=== PATIENT | male | born 1935 | race Two or more races ===

== ENCOUNTER 2016-12-15 14:11 | Inpatient (IN) | payer MEDICARE, OTHER ==
[~2016-12-15] VITALS: Ht 177.8 cm; Wt 62.8 kg
[2016-12-15] MEDS ORDERED: LEVO25TA5 PO (14:33)
[2016-12-15] MEDS ORDERED: FLOM5CAP PO (14:33)
[2016-12-15] MEDS ORDERED: VITA50LO2 PO (14:33)
[2016-12-15] MEDS ORDERED: ASPI81TA85 PO (14:33)
[2016-12-15] MEDS ORDERED: TUMS500C PO (14:33)
[2016-12-15] MEDS ORDERED: TYLE500T78 PO (14:33)
[2016-12-15] MEDS ORDERED: DONETAB5 PO (14:33)
[2016-12-15] MEDS ORDERED: LEXA1TAB PO (14:33)
[2016-12-15] MEDS ORDERED: [UNRECOGNIZED DRUG - CODE] PO (14:33)
[2016-12-15] MEDS ORDERED: MAGN1CAP PO (14:33)
[2016-12-15] MEDS ORDERED: ACETAMINOPHEN TAB 650MG DOSE (2X325MG) PO ONE (15:00)
[2016-12-15 15:09] LABS: BASO % 0.3 % (0.0-1.0); EOS % 0.2 % (0.0-3.0); LARGE UNSTAINED CELL # 0.1 K/mm3 (0.0-0.4); LARGE UNSTAINED CELL % 0.3 % (0.0-4.0); LYMPH # 0.5 K/mm3 (1.5-4.5); LYMPH % 3.4 % (24.0-44.0); MEAN CORPUSCULAR HEMOGLOBIN 31.4 pg (27.0-33.0); MEAN CORPUSCULAR HGB CONC 33.4 g/dl (32.0-36.5); MONO # 0.7 K/mm3 (0.0-0.8); MONO % 4.8 % (0.0-5.0); NEUTROPHILS # 12.5 K/mm3 (1.8-7.7); NEUTROPHILS % 91.1 % (36.0-66.0); PLATELET COUNT, AUTOMATED 164 k/mm3 (150-450); WHITE BLOOD COUNT 13.7 K/mm3 (4.0-10.0)
[2016-12-15 15:27] LABS: BILIRUBIN,TOTAL 1.5 MG/DL (0.2-1.0); CALCIUM LEVEL 9.3 MG/DL (8.8-10.2); CREATININE FOR GFR 1.48 MG/DL (0.70-1.30); GLOMERULAR FILTRATION RATE 48.4 (>35); POTASSIUM SERUM 4.3 MEQ/L (3.5-5.1)
[2016-12-15 15:28] LABS: ALBUMIN 4.4 GM/DL (3.2-5.2); ALBUMIN/GLOBULIN RATIO 1.19 (1.00-1.93); BILIRUBIN,DIRECT 0.5 MG/DL (0.0-0.2); FREE T4 1.15 NG/DL (0.76-1.46); TOTAL PROTEIN 8.1 GM/DL (6.4-8.2)
[2016-12-15] MEDS ORDERED: IBUPROFEN 600 MG TAB As Ordered ONE (17:26)
[2016-12-15] MEDS ORDERED: B-1210009 PO (18:37)
[2016-12-15] MEDS ORDERED: DONE5TAB17 PO (18:37)
[2016-12-15] MEDS ORDERED: LEVO50TA45 PO (18:37)
[2016-12-15] MEDS ORDERED: SODIUM CHLORIDE 0.9% 1000 ML IV ONE (19:45)
[2016-12-15] MEDS ORDERED: ONDANSETRON 4MG/2ML VIAL (J2405) IV PRN (19:45)
--- NOTE | 2016-12-15 22:07 | HPEPDOC ---
General Date of Admission 12/15/[address] Sandoval [place] Attending Physician: SWATHI TAVAREZ MD Chief Complaint The patient is a 81-year-old male admitted with a reason for visit of AMS. Source: Patient, Family History of Present Illness 81 M poor historian, visiting, h/o hypothyroid, BPH, incontinence, depression dementia, with h/o of CKD chronic back pain, PPM, baseline ambulatory. presented with 1 days of chills and rigor not himself, mild confusion, sent from urgent care with fever of 102. found to have UTI . patient denied cp, palpation, sob, coughing, abd pain, n/v/d/c. no sick contact. ER requested admission. Home Medications Scheduled (Ubqh) 50 Mg Cap, 50 MG PO DAILY, (Reported) (Magnesium) 500 Mg Cap, 500 MG PO DAILY, (Reported) Acetaminophen (Tylenol Extra Strength) 500 Mg Tab, 500 MG PO BID, (Reported) Aspirin (Aspir-81) 81 Mg Tab, 81 MG PO DAILY, (Reported) Cyanocobalamin (B-12) 1,000 Mcg Tab, 1,000 MCG PO DAILY, (Reported) Donepezil Hydrochloride (Donepezil HCl) 5 Mg Tab, 10 MG PO QHS, (Reported) Escitalopram Oxalate (Lexapro) 10 Mg Tab, 10 MG PO DAILY, (Reported) Levothyroxine Sodium (Levoxyl) 50 Mcg Tab, 50 MCG PO DAILY, (Reported) Tamsulosin Hydrochloride (Flomax) 0.4 Mg Cap, 0.4 MG PO QHS, (Reported) Scheduled PRN Calcium Carbonate (Tums) 500 Mg Chw, 500 MG PO PRN PRN for HEARTBURN, (Reported) Allergies Coded Allergies: No Known Allergies (Unverified , 12/15/16) Past Medical History Medical History Depression, hypothyroidism, chronic back pain, demetia, BPH Surgical History ppm, appendix, back surgery, and hernia repair Social History * Smoker: Denies Alcohol: occationally Drugs: denies visiting, from [place] Review of Symptoms Constitutional: Reports: Chills, Fever, Malaise Eyes: Denies: Pain, Vision change ENT: Denies: Head Aches Skin: Denies: Rash, Lesions Pulmonary: Denies: Dyspnea, Cough Cardiovascular: Denies: Chest Pain, Palpitations, Orthopnea Gastrointestinal: Denies: Nausea, Vomiting, Abdominal Pain, Diarrhea, Constipation Genitourinary: Reports: Incontinence Musculoskeletal: Reports: Back Pain, Denies: Neck Pain, Shoulder Pain Neurological: Reports: Weakness, Confusion Psych: Reports: Mood Normal Physical Examination General Exam: Positive: Alert, No Acute Distress Eye Exam: Positive: PERRLA, Conjunctiva & lids normal ENT Exam: Positive: Atraumatic, Mucous membr. moist/pink Neck Exam: Positive: Supple Chest Exam: Positive: Clear to auscultation, Normal air movement, Negative: Rales, Rhonchi, Wheezing Heart Exam: Positive: Rate Normal, Normal S1, Normal S2, Negative: Tachycardic Abdomen Exam: Positive: Normal bowel sounds, Soft, Negative: Tenderness Extremity Exam: Negative: Clubbing, Cyanosis, Edema Vital Signs Vital Signs Date Time Temp Pulse Resp B/P (MAP) Pulse Ox O2 Delivery O2 Flow Rate FiO2 12/15/16 18:29 101.0 12/15/16 15:28 78 16 12/15/16 14:23 99 Room Air Laboratory Data Labs 24H Laboratory Tests 2 12/15/16 14:27: White Blood Count 13.7H, Red Blood Count 4.27L, Hemoglobin 13.4L, Hematocrit 40.1L, Mean Corpuscular Volume 94.0, Mean Corpuscular Hemoglobin 31.4, Mean Corpuscular Hemoglobin Concent 33.4, Red Cell Distribution Width 14.0, Platelet Count 164, Neutrophils (%) (Auto) 91.1H, Lymphocytes (%) (Auto) 3.4L, Monocytes (%) (Auto) 4.8, Eosinophils (%) (Auto) 0.2, Basophils (%) (Auto) 0.3, Neutrophils # (Auto) 12.5H, Lymphocytes # (Auto) 0.5L, Monocytes # (Auto) 0.7, Eosinophils # (Auto) 0.0, Basophils # (Auto) 0.0, Large Unclassified Cells % 0.3 , Large Unclassified Cells # 0.1, Anion Gap 11, Glomerular Filtration Rate 48.4 , Calcium Level 9.3, Aspartate Amino Transf (AST/SGOT) 17, Alanine Aminotransferase (ALT/SGPT) 18, Alkaline Phosphatase 85, Total Bilirubin 1.5H, Direct Bilirubin 0.5H, Total Protein 8.1, Albumin 4.4, Albumin/Globulin Ratio 1.19, Thyroid Stimulating Hormone (TSH) 0.587, Free Thyroxine 1.15 12/15/16 15:21: Urine Appearance CLEAR, Urine Color YELLOW, Urine pH 8.0, Urine Specific [place] 1.021, Urine Protein NEGATIVE, Urine Glucose (UA) NEGATIVE, Urine Ketones NEGATIVE, Urine Urobilinogen 0.2, Urine Bilirubin NEGATIVE, Urine Leukocyte Esterase 1+H, Urine Blood 2+H, Urine Nitrite NEGATIVE, Urine WBC (Auto ) 18H, Urine RBC (Auto) 94H, Urine Hyaline Casts (Auto) 0, Urine Bacteria (Auto ) 2+H, Urine Squamous Epithelial Cells 0, Urine Sperm (Auto) 12/15/16 19:50: C-Reactive Protein, Quantitative 1.82H, Lipase 96 CBC/BMP Laboratory Tests 12/15/16 14:27 Red Blood Count 4.27 L, Mean Corpuscular Volume 94.0, Mean Corpuscular Hemoglobin 31.4, Mean Corpuscular Hemoglobin Concent 33.4, Red Cell Distribution Width 14.0, Neutrophils (%) (Auto) 91.1 H, Lymphocytes (%) (Auto) 3.4 L, Monocytes (%) (Auto) 4.8, Eosinophils (%) (Auto) 0.2, Basophils (%) (Auto ) 0.3, Neutrophils # (Auto) 12.5 H, Lymphocytes # (Auto) 0.5 L, Monocytes # ( Auto) 0.7, Eosinophils # (Auto) 0.0, Basophils # (Auto) 0.0 Microbiology Microbiology 12/15/16 Blood Culture, Received Pending 12/15/16 Blood Culture, Received Pending 12/15/16 Urine Culture, Received Pending Assessment/Plan 81 M poor historian, visiting, h/o hypothyroid, BPH, incontinence, depression dementia, with h/o of CKD chronic back pain, PPM, baseline ambulatory.a/w fever UTI Problems (1) Pyelonephritis Status: Acute Problem Text: uc, bc, Zosyn Ua appreciated, IVF (2) Fever Status: Acute Problem Text: Tylenol, IVF, antibiotics, possible 2/2 to pyelonephritis, vs GI source (3) Encephalopathy Status: Acute Problem Text: mild, 2/[address] head wnl neuro check (4) Elevated bilirubin Status: Acute Problem Text: CT abd apreciated lipase neg possible 2/2 to fever and infection IVf monitor US RUQ (5) Depression Status: Chronic Problem Text: c/w med (6) Hypothyroid Status: Chronic Problem Text: thyroid panel c/w med (7) BPH (benign prostatic hyperplasia) Status: Chronic Problem Text: c/w med (8) Dementia Status: Chronic Problem Text: c/w med, supportive care Plan / VTE VTE Prophylaxis Ordered?: Yes (hep sq) Plan Plan cultures, clinical improvement, and PT OLVIN BAIRD MD Dec 15, 2016 22:07
[2016-12-15] MEDS: PIPERACILLIN/TAZOBACTAM SOD 2.25 GM in D5W MINI-BAG PLUS 50 ML IV SCH (23:50)
[2016-12-16 00:55] VITALS: BP 111/60
[2016-12-16] MEDS: DONEPEZIL 5 MG TAB PO SCH ×2 (02:40→20:04)
[2016-12-16] MEDS: TAMSULOSIN 0.4 MG CAP PO SCH ×2 (02:40→20:04)
[2016-12-16] MEDS: HEPARIN SOD (PORCINE) 5000 UNITS/ML VIAL SC SCH ×3 (02:40→20:04)
[2016-12-16] MEDS: SENOKOT S TAB PO SCH ×3 (02:40→20:04)
[2016-12-16] MEDS: NS 1,000 ML IV SCH ×3 (02:41→22:25)
[2016-12-16] MEDS: PIPERACILLIN/TAZOBACTAM SOD 2.25 GM in D5W MINI-BAG PLUS 50 ML IV SCH ×4 (04:19→22:25)
[2016-12-16 04:35] VITALS: BP 119/70
[2016-12-16] MEDS: LEVOTHYROXINE 50MCG TABLET (0.05MG) PO SCH (06:15)
[2016-12-16 06:43] LABS: MEAN CORPUSCULAR HEMOGLOBIN 32.4 pg (27.0-33.0); MEAN CORPUSCULAR VOLUME 95.3 fl (80.0-96.0); RED CELL DISTRIBUTION WIDTH 13.9 % (11.5-14.5); WHITE BLOOD COUNT 14.9 K/mm3 (4.0-10.0)
[2016-12-16 06:49] LABS: INR 1.38
[2016-12-16 06:58] LABS: ALBUMIN 3.6 GM/DL (3.2-5.2); CALCIUM LEVEL 8.3 MG/DL (8.8-10.2); CREATININE FOR GFR 1.42 MG/DL (0.70-1.30); GLOMERULAR FILTRATION RATE 50.8 (>35); POTASSIUM SERUM 4.2 MEQ/L (3.5-5.1); TOTAL PROTEIN 7.2 GM/DL (6.4-8.2)
[2016-12-16 07:10] LABS: BILIRUBIN,TOTAL 2.6 MG/DL (0.2-1.0)
[2016-12-16 08:00] VITALS: BP 104/63
--- NOTE | 2016-12-16 09:16 | REP ---
Chest x-ray: Two views. History: Low grade fever. Findings: The lungs are somewhat hyperinflated, but clear. A bipolar pacemaker is seen in the right heart via the left side. There is diffuse osteopenia. No infiltrate is seen. Pleural angles are sharp. Pulmonary vasculature is not increased. Heart is mildly enlarged unchanged. Impression: Mild cardiomegaly with pacemaker. Lungs clear. Signed by Emanuel Barraza MD 12/16/2016 10:07 A
[2016-12-16] MEDS: ESCITALOPRAM OXALATE 10 MG TAB (LEXAPRO) PO SCH (09:45)
[2016-12-16] MEDS: CYANOCOBALAMIN 500 MCG TAB PO SCH (09:46)
[2016-12-16] MEDS: ASPIRIN 81 MG ENTERIC TAB PO SCH (09:46)
[2016-12-16] MEDS: ACETAMINOPHEN TAB 650MG DOSE (2X325MG) PO PRN ×2 (09:49→20:05)
[2016-12-16 12:00] VITALS: BP 107/73
--- NOTE | 2016-12-16 14:26 | REP ---
Clinical: Altered mental status. Comparison: 10/23/2014 . Findings: Age-related atrophy and microvascular ischemic changes are appreciated. The ventricles and sulci are symmetric. Junior-white differentiation is maintained. There is no evidence for acute intracranial hemorrhage, mass/mass effect, pathology or infarction. No extra-axial fluid collection. Calvarium is intact. Paranasal sinuses and mastoid air cells are clear. Impression: Age related atrophy and microvascular ischemic changes. No acute intracranial hemorrhage, infarction, or mass/mass effect. Signed by King Stevenson MD 12/15/2016 08:27 P
--- NOTE | 2016-12-16 14:33 | REP ---
Clinical: Acute right upper quadrant abdominal pain. Technique: Junior scale ultrasound using curved array transducer. Findings: The liver and pancreas are normal in contour, size, and echogenicity without focal hepatic or pancreatic lesions identified. The gallbladder is normal without gallstones, wall thickening or pericholecystic fluid. No biliary ductal dilatation is appreciated, and the common bile duct measures 2.1 mm diameter. The right kidney is normal in reniform shape without hydronephrosis and measures 10.2 x 4.0 x 4.7 cm. No ascites. Visualized portions of the abdominal aorta normal. Impression: Normal right upper quadrant and gallbladder abdominal ultrasound. Signed by King Stevenson MD 12/16/2016 07:06 A
--- NOTE | 2016-12-16 15:07 | REP ---
CT ABDOMEN AND PELVIS WITHOUT IV CONTRAST: CT abdomen and pelvis performed without oral or IV contrast with sagittal and coronal reconstruction images performed. There are fibrotic changes in each lung base. There is mild cardiomegaly with a small amount of right pericardial fluid. The liver, spleen, adrenals, pancreas, and kidneys are grossly unremarkable. No renal or ureteral calculus is seen and there so no hydroureteronephrosis. There are moderate atherosclerotic calcifications of the abdominal aorta which is quite tortuous. There is no abdominal aortic aneurysm. There is no adenopathy. There is no free fair or free fluid. There is no bowel wall thickening. There is no evidence of a pelvic mass. Urinary bladder is not well distended and not well evaluated. Soft tissue density in the right inguinal canal probably represents the patient's right testicle. Lumbar spine is curved towards the right and there are degenerative changes of the spine. IMPRESSION: No acute abnormalities. Mild cardiomegaly. Right testicle appears to be located in the inguinal canal. No free air or free fluid. No evidence of renal or ureteral calculus and no hydroureteronephrosis. Signed by Murray Junior MD 12/16/2016 04:02 P
--- NOTE | 2016-12-16 15:22 | IPN ---
DATE: 12/16/2016 Mr. Wilkinson is a poor historian. He has no complaints of pain, chest pain. No shortness of breath. He seems to be tolerating a diet. Temperature 99.2, pulse 82, respiratory rate 16, blood pressure 119/70, 96% on room air. Body Mass Index (BMI) 23.4. He is answering simple questions, but is a poor historian. Mucous membranes are moist. Neck is supple. Breathing is symmetrical. Abdomen is soft, doughy, nontender. White cell count 14.9, hemoglobin 12.4, platelets 151, INR is 1.3. White cell count in his urine was 18 with 94 red cells. Sodium 137, potassium 4.2, chloride 105, carbon dioxide 24, BUN 23, creatinine 1.42, total bilirubin 2.6, baseline creatinine would appear to be perhaps around 1.35 based on laboratories from 2015. ASSESSMENT: This is an 81-year-old with suspected pyelonephritis or urinary tract infection (UTI). PLAN: 1. Infectious disease. The patient is continued on appropriate antibiotics. Awaiting culture results. 2. The patient has encephalopathy, which is likely acute on chronic, made worse with infection and fever. 3. The patient has elevated bilirubin. We will repeat in the morning. 4. The patient has hypothyroidism. 5. The patient has benign prostatic hypertrophy. 6. The patient has dementia. 7. The patient could possibly benefit from social work consultation.
[2016-12-16 18:05] VITALS: BP 122/73
[2016-12-16 22:00] VITALS: BP_SYST 107; BP_SYST 123; BP_DIAS 50; BP_DIAS 72
[2016-12-17] MEDS: PIPERACILLIN/TAZOBACTAM SOD 2.25 GM in D5W MINI-BAG PLUS 50 ML IV SCH ×2 (04:26→09:37)
[2016-12-17 06:00] VITALS: BP 139/88
[2016-12-17] MEDS: ACETAMINOPHEN TAB 650MG DOSE (2X325MG) PO PRN ×2 (06:13→21:14)
[2016-12-17] MEDS: LEVOTHYROXINE 50MCG TABLET (0.05MG) PO SCH (06:13)
[2016-12-17 06:29] LABS: MEAN CORPUSCULAR HEMOGLOBIN 31.2 pg (27.0-33.0); MEAN CORPUSCULAR HGB CONC 33.1 g/dl (32.0-36.5); MEAN CORPUSCULAR VOLUME 94.2 fl (80.0-96.0); RED CELL DISTRIBUTION WIDTH 14.2 % (11.5-14.5); WHITE BLOOD COUNT 12.3 K/mm3 (4.0-10.0)
[2016-12-17 07:29] LABS: ALBUMIN 3.3 GM/DL (3.2-5.2); ALBUMIN/GLOBULIN RATIO 0.92 (1.00-1.93); BILIRUBIN,TOTAL 1.2 MG/DL (0.2-1.0); CREATININE FOR GFR 1.29 MG/DL (0.70-1.30); GLOMERULAR FILTRATION RATE 56.8 (>35); MAGNESIUM LEVEL 1.9 MG/DL (1.8-2.4); TOTAL PROTEIN 6.9 GM/DL (6.4-8.2)
[2016-12-17] MEDS: CYANOCOBALAMIN 500 MCG TAB PO SCH (08:22)
[2016-12-17] MEDS: ASPIRIN 81 MG ENTERIC TAB PO SCH (08:23)
[2016-12-17] MEDS: ESCITALOPRAM OXALATE 10 MG TAB (LEXAPRO) PO SCH (08:23)
[2016-12-17] MEDS: SENOKOT S TAB PO SCH ×2 (08:23→21:14)
[2016-12-17] MEDS: HEPARIN SOD (PORCINE) 5000 UNITS/ML VIAL SC SCH ×2 (08:23→21:15)
[2016-12-17] MEDS: cefTRIAXone SOD 1 GM in D5W MINI-BAG PLUS 50 ML IV SCH (13:46)
[2016-12-17 14:00] VITALS: BP 122/76
--- NOTE | 2016-12-17 15:13 | IPN ---
DATE: 12/17/2016 Mr. Wilkinson is doing better today. He seems to be more interactive. He has no complaints of pain. He was up and walking with assistance. Temperature is 98.7, pulse 79, respiratory rate 18, blood pressure 139/70. Input and output notable for positive 100, but that does not account for a number of incontinent voids. He is answering simple questions. Has no complaints of pain. Mucous membranes are moist. Neck is supple. Breathing is symmetrical. Heart is distant sounding as well. I:E ratio is 1:3. Radial pulses 2+. Abdomen is soft, doughy, nontender. White cell count 12.3, hemoglobin 11.4, platelets 136. BUN 23, creatinine 1.29, total bilirubin 1.2 and improving. ASSESSMENT: This is an 81-year-old with suspected pyelonephritis and likely urinary tract infection (UTI) resulting in metabolic encephalopathy, which is improving. PLAN: 1. Infectious disease. The patient is continued on antibiotics. Urine culture has grown Escherichia (E) coli. Zosyn has been switched to ceftriaxone. 2. The patient has metabolic encephalopathy, which is acute on chronic, made worse with infection. He is improving. 3. Physical debility. The patient was seen by physical therapy (PT) and will likely need one to two sessions of inpatient physical therapy (PT) to return to his previous level of function. 4. The patient has hypothyroidism. 5. The patient has benign prostatic hypertrophy. 6. The patient has dementia. I did discuss this case in person with the patient's yesterday.
[2016-12-17] MEDS ORDERED: HALOPERIDOL 1 MG TAB PO PRN (18:00)
[2016-12-17] MEDS: DONEPEZIL 5 MG TAB PO SCH (21:14)
[2016-12-17] MEDS: risperiDONE 0.25 MG TAB PO SCH (21:14)
[2016-12-17] MEDS: TAMSULOSIN 0.4 MG CAP PO SCH (21:14)
[2016-12-17 21:30] VITALS: BP 167/97
[2016-12-18] MEDS: LEVOTHYROXINE 50MCG TABLET (0.05MG) PO SCH (06:08)
[2016-12-18] MEDS: ACETAMINOPHEN TAB 650MG DOSE (2X325MG) PO PRN ×2 (06:13→20:08)
[2016-12-18 06:15] VITALS: BP 138/87
[2016-12-18 06:35] LABS: MEAN CORPUSCULAR HEMOGLOBIN 31.6 pg (27.0-33.0); MEAN CORPUSCULAR HGB CONC 33.2 g/dl (32.0-36.5); MEAN CORPUSCULAR VOLUME 95.3 fl (80.0-96.0); RED CELL DISTRIBUTION WIDTH 14.2 % (11.5-14.5); WHITE BLOOD COUNT 7.5 K/mm3 (4.0-10.0)
[2016-12-18 06:53] LABS: ALBUMIN 3.2 GM/DL (3.2-5.2); ALBUMIN/GLOBULIN RATIO 0.91 (1.00-1.93); BILIRUBIN,TOTAL 1.1 MG/DL (0.2-1.0); CALCIUM LEVEL 8.5 MG/DL (8.8-10.2); CREATININE FOR GFR 1.28 MG/DL (0.70-1.30); GLOMERULAR FILTRATION RATE 57.3 (>35); MAGNESIUM LEVEL 2.1 MG/DL (1.8-2.4); POTASSIUM SERUM 3.9 MEQ/L (3.5-5.1); TOTAL PROTEIN 6.7 GM/DL (6.4-8.2)
[2016-12-18] MEDS: HEPARIN SOD (PORCINE) 5000 UNITS/ML VIAL SC SCH ×2 (09:01→20:09)
[2016-12-18] MEDS: SENOKOT S TAB PO SCH ×2 (09:01→20:09)
[2016-12-18] MEDS: ESCITALOPRAM OXALATE 10 MG TAB (LEXAPRO) PO SCH (09:01)
[2016-12-18] MEDS: ASPIRIN 81 MG ENTERIC TAB PO SCH (09:01)
[2016-12-18] MEDS: CYANOCOBALAMIN 500 MCG TAB PO SCH (09:01)
[2016-12-18] MEDS: risperiDONE 0.25 MG TAB PO SCH ×2 (09:01→20:09)
--- NOTE | 2016-12-18 11:13 | IPN ---
DATE: 12/18/2016 Mr. Wilkinson had some element of confusion yesterday afternoon which has resolved with the use of Haldol and Risperdal. He slept well last night. He did have a sitter placed yesterday. This morning, he has no complaints of pain. He is somnolent, but easily aroused. Temperature 99.6, pulse 83, respiratory rate 18, blood pressure 138/87, 96% on room air. He is able to tell me that he is at [facility] in [place]. He does not know who the president is. Mucous membranes moist. Neck supple. Breathing is symmetrica, rested. Heart is borderline tachycardiac on exam with a rate between 90 and 100. Radial pulses are 2+. Capillary refill is less than 2 seconds. Abdomen is doughy, tympanitic, nontender. White cell count 7.5, hemoglobin 11, and platelets of 131. BUN 21, creatinine 1.28, total bilirubin 1.1. ASSESSMENT: This is an 81-year-old with suspected pyelonephritis and likely urinary tract infection resulting in metabolic encephalopathy. PLAN: 1. Infectious disease. Patient is continued on antibiotics. He is currently on ceftriaxone for E. Coli urinary tract infection (UTI). 2. The patient has metabolic encephalopathy which is acute on chronic and made worse with his infection. He is on a short course of Risperdal and Haldol as needed. He does have a sitter at bedside. 3. The patient has physical debility and is not back to his previous level of function. 4. The patient has hypothyroidism. 5. The patient has benign prostatic hypertrophy (BPH). 6. The patient has dementia.
--- NOTE | 2016-12-18 13:33 | ECGEPIP ---
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 Consistent ventricular paced rhythm. Paced complexes with leftward axis and LBBB in keeping with RV apical stimulation No change from 10/22/14 Electronically Signed On 12-18-2016 13:32:50 EDT by Jaswinder Dickey
[2016-12-18] MEDS: cefTRIAXone SOD 1 GM in D5W MINI-BAG PLUS 50 ML IV SCH (13:34)
[2016-12-18 14:00] VITALS: BP 122/70
[2016-12-18] MEDS: TAMSULOSIN 0.4 MG CAP PO SCH (20:08)
[2016-12-18] MEDS: DONEPEZIL 5 MG TAB PO SCH (20:08)
[2016-12-18 22:00] VITALS: BP 121/77
[2016-12-19] MEDS: LEVOTHYROXINE 50MCG TABLET (0.05MG) PO SCH (05:34)
[2016-12-19] MEDS: ACETAMINOPHEN TAB 650MG DOSE (2X325MG) PO PRN (05:35)
[2016-12-19 06:00] VITALS: BP 150/95
[2016-12-19 06:26] LABS: MEAN CORPUSCULAR HEMOGLOBIN 31.9 pg (27.0-33.0); MEAN CORPUSCULAR VOLUME 93.9 fl (80.0-96.0); RED CELL DISTRIBUTION WIDTH 14.3 % (11.5-14.5); WHITE BLOOD COUNT 6.4 K/mm3 (4.0-10.0)
[2016-12-19 06:55] LABS: ALBUMIN 3.2 GM/DL (3.2-5.2); ALBUMIN/GLOBULIN RATIO 0.97 (1.00-1.93); ALKALINE PHOSPHATASE 68 U/L (45-117); ALT/SGPT 24 U/L (12-78); ANION GAP 11 MEQ/L (8-16); AST/SGOT 27 U/L (15-37); BILIRUBIN,TOTAL 0.8 MG/DL (0.2-1.0); BLOOD UREA NITROGEN 20 MG/DL (7-18); CALCIUM LEVEL 8.2 MG/DL (8.8-10.2); CARBON DIOXIDE LEVEL 23 MEQ/L (21-32); CHLORIDE LEVEL 107 MEQ/L (98-107); CREATININE FOR GFR 1.18 MG/DL (0.70-1.30); GLOMERULAR FILTRATION RATE > 60.0 (>35); GLUCOSE, FASTING 97 MG/DL (83-110); MAGNESIUM LEVEL 1.9 MG/DL (1.8-2.4); POTASSIUM SERUM 3.8 MEQ/L (3.5-5.1); SODIUM LEVEL 141 MEQ/L (136-145); TOTAL PROTEIN 6.5 GM/DL (6.4-8.2)
[2016-12-19] MEDS: risperiDONE 0.25 MG TAB PO SCH (08:33)
[2016-12-19] MEDS: HEPARIN SOD (PORCINE) 5000 UNITS/ML VIAL SC SCH (08:33)
[2016-12-19] MEDS: SENOKOT S TAB PO SCH (08:33)
[2016-12-19] MEDS: ESCITALOPRAM OXALATE 10 MG TAB (LEXAPRO) PO SCH (08:33)
[2016-12-19] MEDS: ASPIRIN 81 MG ENTERIC TAB PO SCH (08:33)
[2016-12-19] MEDS: CYANOCOBALAMIN 500 MCG TAB PO SCH (08:34)
[2016-12-19] MEDS ORDERED: CEFD1CAP8 PO (10:20)
[2016-12-19] MEDS ORDERED: INFLUENZA VIRUS VACCINE HIGH DOSE 0.5 ML SYRINGE (90662) IM ONE (11:00)
--- NOTE | 2016-12-19 15:08 | DSES ---
DATE OF ADMISSION: 12/15/2016 DATE OF DISCHARGE: 12/19/2016 There no specialist involved in his care. No complications during his stay. No procedures performed during his stay. DISCHARGE DIAGNOSES: Urinary tract infection with metabolic encephalopathy. E coli urinary tract infection. Physical debility. Hypothyroidism. Benign prostatic hypertrophy. Baseline dementia. SUMMARY OF HIS PRESENTATION: This is an 81-year-old who presented with fevers, chills, rigor, increasing confusion, sent from urgent care, found to have a urinary tract infection with the possibility of pyelonephritis was considered. Imaging studies did not support that. He was started on appropriate broad-spectrum antibiotics. Urine cultures grew E coli, which was kaufman sensitive. He improved markedly. He was initially seen by physical therapy but over the holiday weekend, was not seen by physical therapy but did improve markedly. He was thought to be safe by myself, nursing staff and family to return to his previous level of care. On the day of discharge temperature is 97.8, pulse 81, respiratory rate 17, blood pressure 150/95, 97% in room air. Awake, alert, pleasantly conversant. Making jokes. Mucous membranes moist. Neck supple. Breathing symmetrical and rested. Heart is in a regular rate and rhythm. White cell count is 6.4, hemoglobin 11.6, platelets 149. BUN 20, creatinine 1.18. DISCHARGE INSTRUCTIONS: Call hospital attendance secretary for assistance with followup appointment. Activity as tolerated. Diet as tolerated. Plan for local followup within 7-10 days. Medication at the time of discharge includes: - Cefdinir 300 mg by mouth twice daily - Tylenol as needed - aspirin 81 mg by mouth daily - calcium supplement and vitamin B12 supplement - benazepril 10 mg by mouth daily at bedtime - Lexapro 10 mg by mouth daily - Synthroid 50 mcg by mouth daily - magnesium supplement - Flomax 0.4 mg by mouth daily at bedtime - UBQH by mouth daily.
== END 2016-12-19 12:12 | disposition home or self-care (01) | DRG 689 ==
LOC: M ED 14:11 → M ED INP 21:09 → M MSPAV 12-16 15:45
PROVIDERS: ADMIT Hospitalist; ATTEND Internal Medicine
DX: N39.0 Urinary tract infection, site not specified (principal); G93.41 Metabolic encephalopathy; B96.20 Unspecified Escherichia coli [E. coli] as the cause of diseases classified elsewhere; E03.9 Hypothyroidism, unspecified; F32.9 Major depressive disorder, single episode, unspecified; N40.1 Benign prostatic hyperplasia with lower urinary tract symptoms; F03.90 Unspecified dementia, unspecified severity, without behavioral disturbance, psychotic disturbance, mood disturbance, and anxiety; Z79.01 Long term (current) use of anticoagulants; Z79.899 Other long term (current) drug therapy

== ENCOUNTER → 2016-12-27 | Outpatient (REF) | payer MEDICARE, OTHER ==
[~2016-12-27] MED LIST: ASPI81TA85 PO; B-1210009 PO; CEFD1CAP8 PO; DONE5TAB17 PO; DONETAB5 PO; FLOM5CAP PO; LEVO25TA5 PO; LEVO50TA45 PO; LEXA1TAB PO; MAGN1CAP PO; TUMS500C PO; TYLE500T78 PO; VITA50LO2 PO; [UNRECOGNIZED DRUG - CODE] PO
== END ==
LOC: M SFHCCAPE 13:33
PROVIDERS: ATTEND Physician Assistant
DX: N39.0 Urinary tract infection, site not specified (principal)
CPT/HCPCS: 81002; 87086; G0463